=== PATIENT | male | born 1945 | race Caucasian/White ===

== ENCOUNTER 2018-01-28 09:34 | Emergency (ER) | payer BC, OTHER ==
[2018-01-28 11:20] LABS: Absolute Lymphocytes (CBC) 2.1 K/uL (0.7-4.9); Absolute Monocytes 0.6 K/uL (0.1-1.3); Absolute Neutrophil 7.3 K/uL (1.8-8.0); Basophils % 0.5 % (0-1.3); Eosinophils % 1.5 % (0-4.4); Hematocrit 43.9 % (39.6-49.0); Lymphocytes % 20.8 % (15.3-44.8); MCH 29.2 pg (27.0-35.0); MCV 85.6 fL (80-100); Monocytes % 5.8 % (3.3-12.3); RBC Red Blood Cell Count 5.12 M/uL (4.33-5.43)
[2018-01-28 11:31] LABS: Potassium 3.8 mEq/L (3.6-5.0)
--- NOTE | 2018-01-28 11:33 | RAD REPORT ---
EXAM DESCRIPTION: RAD - Foot Right 2 View - 01/28/2018 11:16 am CLINICAL HISTORY: Great toe injury. COMPARISON: None. FINDINGS: Soft tissue swelling is seen involving the great toe. Definitive evidence of fracture is n ot seen. Large calcaneal spur along the plantar aspect.
--- NOTE | 2018-01-28 11:54 | EDPHYS ---
Physician Documentation [facility] Name: Angel Palmer Age: 72 yrs Sex: Male : 1945 Arrival Date: 01/28/2018 Time: 09:38 Bed 14 Private MD: None, None ED Physician Vladimir Kirby HPI: 01/28 11:49 This 72 yrs old Male presents to ER via Wheelchair with complaints of Toe snw Injury. 11:49 Onset: The symptoms/episode began/occurred suddenly, and became persistent. The patient snw has not experienced similar symptoms in the past. The patient has not recently seen a physician, the patient's primary care provider is Dr. Chakraborty. Historical: - Allergies: 10:12 NKA; iw - Home Meds: 10:12 albuterol sulfate 90 mcg/actuation Inhl HFAA 1 puff every 4-6 hours [Active]; iw budesonide inhalation inhalation [Active]; citalopram 20 mg tab 1 tab once daily [Active]; hydrochlorothiazide 25 mg Oral tab 1 tab once daily [Active]; lisinopril 5 mg Oral tab 1 tab once daily [Active]; metformin 1,000 mg Oral tab 1 tab 2 times per day [Active]; simvastatin 40 mg Oral tab 1 tab once daily [Active]; - PMHx: 10:12 Diabetes - NIDDM; Hypertension; Hyperlipidemia; iw - PSHx: 10:12 None; iw - Immunization history:: Adult Immunizations up to date, Last tetanus immunization: up to date. - Social history:: Smoking status: Patient uses tobacco products, 1.5 ppd. - Ebola Screening: : Patient negative for fever greater than or equal to 101.5 degrees Fahrenheit, and additional compatible Ebola Virus Disease symptoms Patient denies exposure to infectious person Patient denies travel to an Ebola-affected area in the 21 days before illness onset No symptoms or risks identified at this time. ROS: 11:00 Constitutional: Negative for fever, chills, and weight loss, Eyes: Negative for injury, snw pain, redness, and discharge, ENT: Negative for injury, pain, and discharge, Neck: Negative for injury, pain, and swelling, Cardiovascular: Negative for chest pain, palpitations, and edema, Respiratory: Negative for shortness of breath, cough, wheezing, and pleuritic chest pain, Abdomen/GI: Negative for abdominal pain, nausea, vomiting, diarrhea, and constipation, Back: Negative for injury and pain, : Negative for injury, bleeding, discharge, and swelling, MS/Extremity: Negative for deformity, + redness to area surrounding toenail, toenail loose Skin: Negative for injury, rash, and discoloration, Neuro: Negative for headache, weakness, numbness, tingling, and seizure. Exam: 10:58 Constitutional: This is a well developed, well nourished patient who is awake, alert, snw and in no acute distress. Head/Face: Normocephalic, atraumatic. Eyes: Pupils equal round and reactive to light, extra-ocular motions intact. Lids and lashes normal. Conjunctiva and sclera are non-icteric and not injected. Right subconjunctival hemorrhage noted. Cornea within normal limits. Periorbital areas with no swelling, redness, or edema. ENT: Nares patent. No nasal discharge, no septal abnormalities noted. Tympanic membranes are normal and external auditory canals are clear. Oropharynx with no redness, swelling, or masses, exudates, or evidence of obstruction, uvula midline. Mucous membranes moist. Neck: Trachea midline, no thyromegaly or masses palpated, and no cervical lymphadenopathy. Supple, full range of motion without nuchal rigidity, or vertebral point tenderness. No Meningismus. Chest/axilla: Normal chest wall appearance and motion. Nontender with no deformity. No lesions are appreciated. Cardiovascular: Regular rate and rhythm with a normal S1 and S2. No gallops, murmurs, or rubs. Normal PMI, no JVD. No pulse deficits. Respiratory: Lungs have equal breath sounds bilaterally, clear to auscultation and percussion. No rales, rhonchi or wheezes noted. No increased work of breathing, no retractions or nasal flaring. Abdomen/GI: Soft, non-tender, with normal bowel sounds. No distension or tympany. No guarding or rebound. No evidence of tenderness throughout. Back: No spinal tenderness. No costovertebral tenderness. Full range of motion. Skin: Warm, dry with normal turgor. Normal color with no rashes, no lesions, and no evidence of cellulitis. Area to right great toe with peeling, mild erythema at toenail edge, loose nail Neuro: Awake and alert, GCS 15, oriented to person, place, time, and situation. Cranial nerves II-XII grossly intact. Motor strength 5/5 in all extremities. Sensory grossly intact. Cerebellar exam normal. Normal gait. Psych: Awake, alert, with orientation to person, place and time. Behavior, mood, and affect are within normal limits. 10:58 Skin: Appearance: normal except for affected area, injury, contusion(s), that are deep, of the right great toe. Vital Signs: 10:12 BP 167 / 87; Pulse 86; Resp 20 S; Temp 97.5; Pulse Ox 93% on R/A; Weight 107.05 kg; iw Height 5 ft. 8 in. (172.72 cm); Pain 7/10; 12:18 BP 158 / 75; Pulse 67; Resp 18; Pulse Ox 96% on R/A; mb3 10:12 Body Mass Index 35.88 (107.05 kg, 172.72 cm) iw MDM: 10:46 Patient medically screened. snw 11:59 Data reviewed: vital signs, nurses notes. Data interpreted: Pulse oximetry: on room air snw is 93 %. Interpretation: acceptable. Counseling: I had a detailed discussion with the patient and/or guardian regarding: the historical points, exam findings, and any diagnostic results supporting the discharge/admit diagnosis, the presence of at least one elevated blood pressure reading (>120/80) during this emergency department visit, radiology results, the need for outpatient follow up, to return to the emergency department if symptoms worsen or persist or if there are any questions or concerns that arise at home. Special discussion: I have referred the patient to see his PCP for further evaluation of high blood pressure. Based on the history and exam findings, there is no indication for further emergent testing or inpatient evaluation. I discussed with the patient/guardian the need to see the physician coding specialist for further evaluation of the symptoms. I discussed with the patient/guardian the need to see the primary care provider for further evaluation of the symptoms. 01/28 10:58 Order name: Sed Rate; Complete Time: 12:05 snw 01/28 10:58 Order name: CBC with Diff; Complete Time: 12:05 snw 01/28 10:58 Order name: Foot Right 2 View XRAY; Complete Time: 11:36 snw 01/28 10:58 Order name: Blood Culture Adult (2) snw 01/28 10:58 Order name: Chem 7; Complete Time: 11:36 snw Administered Medications: 12:01 Drug: LevaQUIN 500 mg Route: PO; mb3 12:17 Follow up: Response: No adverse reaction mb3 Disposition: 16:15 Co-signature as Attending Physician, Vladimir Kirby MD I agree with the assessment and kdr plan of care. Disposition: 01/28/18 11:53 Discharged to Home. Impression: Contusion of toe with damage to nail, Cellulitis of right toe. - Condition is Stable. - Discharge Instructions: Cellulitis, Paronychia. - Prescriptions for Levaquin 500 mg Oral Tablet - take 1 tablet by ORAL route once daily for 7 days; 7 tablet. Tylenol- Codeine #3 300-30 mg Oral Tablet - take 2 tablets by ORAL route every 6 hours As needed; 15 tablet. - Medication Reconciliation Form, Thank You Letter, Antibiotic Education, Prescription Opioid Use form. - Follow up: Juan Alberto Aceves DPM; When: 1 - 2 days; Reason: Recheck today's complaints, Continuance of care, Re-evaluation by your physician. Signatures: Dispatcher [employer] EDMS Vladimir Kirby MD MD [facility] Brenda Rubio, JAHAIRA-Cristian MINE EXPLORATION ENGINEER-Csnw Catarina Hooks RN RN Paxton Bedolla RN RN mb3 Corrections: (The following items were deleted from the chart) 11:03 10:58 Constitutional: This is a well developed, well nourished patient who is awake, snw alert, and in no acute distress. Head/Face: Normocephalic, atraumatic. Eyes: Pupils equal round and reactive to light, extra-ocular motions intact. Lids and lashes normal. Conjunctiva and sclera are non-icteric and not injected. Cornea within normal limits. Periorbital areas with no swelling, redness, or edema. ENT: Nares patent. No nasal discharge, no septal abnormalities noted. Tympanic membranes are normal and external auditory canals are clear. Oropharynx with no redness, swelling, or masses, exudates, or evidence of obstruction, uvula midline. Mucous membranes moist. Neck: Trachea midline, no thyromegaly or masses palpated, and no cervical lymphadenopathy. Supple, full range of motion without nuchal rigidity, or vertebral point tenderness. No Meningismus. Chest/axilla: Normal chest wall appearance and motion. Nontender with no deformity. No lesions are appreciated. Cardiovascular: Regular rate and rhythm with a normal S1 and S2. No gallops, murmurs, or rubs. Normal PMI, no JVD. No pulse deficits. Respiratory: Lungs have equal breath sounds bilaterally, clear to auscultation and percussion. No rales, rhonchi or wheezes noted. No increased work of breathing, no retractions or nasal flaring. Abdomen/GI: Soft, non-tender, with normal bowel sounds. No distension or tympany. No guarding or rebound. No evidence of tenderness throughout. Back: No spinal tenderness. No costovertebral tenderness. Full range of motion. Neuro: Awake and alert, GCS 15, oriented to person, place, time, and situation. Cranial nerves II-XII grossly intact. Motor strength 5/5 in all extremities. Sensory grossly intact. Cerebellar exam normal. Normal gait. Psych: Awake, alert, with orientation to person, place and time. Behavior, mood, and affect are within normal limits. snw 12:19 11:53 01/28/2018 11:53 Discharged to Home. Impression: Contusion of toe with damage to mb3 nail; Cellulitis of right toe. Condition is Stable. Forms are Medication Reconciliation Form, Thank You Letter, Antibiotic Education, Prescription Opioid Use. Follow up: Juan Alberto Aceves; When: 1 - 2 days; Reason: Recheck today's complaints, Continuance of care, Re-evaluation by your physician. snw
--- NOTE | 2018-01-28 11:54 | ER ---
Nurse's Notes [facility] Name: Angel Palmer Age: 72 yrs Sex: Male : 1945 Arrival Date: 01/28/2018 Time: 09:38 Bed 14 Private MD: None, None Diagnosis: Contusion of toe with damage to nail;Cellulitis of right toe Presentation: 01/28 10:08 Presenting complaint: Patient states: a horse stall door fell on right great toe 10 iw days ago, is having pain, swelling, and toe nail looks like it may fall off. Transition of care: patient was not received from another setting of care. Onset of symptoms was January 18, 2018. Risk Assessment: Do you want to hurt yourself or someone else? Patient reports no desire to harm self or others. Initial Sepsis Screen: Does the patient meet any 2 criteria? No. Patient's initial sepsis screen is negative. Does the patient have a suspected source of infection? No. Patient's initial sepsis screen is negative. Care prior to arrival: None. 10:08 Method Of Arrival: Wheelchair iw 10:08 Acuity: DEBRA 4 iw Historical: - Allergies: 10:12 NKA; iw - Home Meds: 10:12 albuterol sulfate 90 mcg/actuation Inhl HFAA 1 puff every 4-6 hours [Active]; iw budesonide inhalation inhalation [Active]; citalopram 20 mg tab 1 tab once daily [Active]; hydrochlorothiazide 25 mg Oral tab 1 tab once daily [Active]; lisinopril 5 mg Oral tab 1 tab once daily [Active]; metformin 1,000 mg Oral tab 1 tab 2 times per day [Active]; simvastatin 40 mg Oral tab 1 tab once daily [Active]; - PMHx: 10:12 Diabetes - NIDDM; Hypertension; Hyperlipidemia; iw - PSHx: 10:12 None; iw - Immunization history:: Adult Immunizations up to date, Last tetanus immunization: up to date. - Social history:: Smoking status: Patient uses tobacco products, 1.5 ppd. - Ebola Screening: : Patient negative for fever greater than or equal to 101.5 degrees Fahrenheit, and additional compatible Ebola Virus Disease symptoms Patient denies exposure to infectious person Patient denies travel to an Ebola-affected area in the 21 days before illness onset No symptoms or risks identified at this time. Screenin:35 Abuse screen: Denies threats or abuse. Nutritional screening: No deficits noted. mb3 Tuberculosis screening: No symptoms or risk factors identified. Fall Risk None identified. Assessment: 10:31 General: Appears uncomfortable, well groomed, Behavior is calm, cooperative, mb3 appropriate for age. Pain: Complains of pain in Left first toenail. Neuro: No deficits noted. Cardiovascular: No deficits noted. Heart tones S1 S2 present. Respiratory: No deficits noted. Airway is patent Respiratory effort is even, unlabored, Respiratory pattern is regular, symmetrical. GI: No signs and/or symptoms were reported involving the gastrointestinal system. : No signs and/or symptoms were reported regarding the genitourinary system. EENT: Reports burst blood vessel in left eye. Musculoskeletal: Reports pain in Left first toenail. Vital Signs: 10:12 BP 167 / 87; Pulse 86; Resp 20 S; Temp 97.5; Pulse Ox 93% on R/A; Weight 107.05 kg; iw Height 5 ft. 8 in. (172.72 cm); Pain 7/10; 12:18 BP 158 / 75; Pulse 67; Resp 18; Pulse Ox 96% on R/A; mb3 10:12 Body Mass Index 35.88 (107.05 kg, 172.72 cm) iw ED Course: 09:38 Patient arrived in ED. mr 09:38 None, None is Private Physician. mr 10:06 Brenda Rubio [facility]C [facility] snw 10:06 Vladimir Kirby MD is Attending Physician. snw 10:10 Triage completed. iw 10:12 Arm band placed on. iw 10:30 Paxton Bedolla, ROSINA is Primary Nurse. mb3 11:13 Inserted saline lock: 20 gauge in right forearm, using aseptic technique. Blood mb3 collected. 11:15 X-ray completed. Portable x-ray completed in exam room. Patient tolerated procedure la2 well. 11:16 Foot Right 2 View XRAY In Process Unspecified. EDMS 11:52 Juan Alberto Aceves DPM is Referral Physician. snw 12:18 Patient has correct armband on for positive identification. mb3 12:18 No provider procedures requiring assistance completed. IV discontinued, intact, mb3 bleeding controlled, No redness/swelling at site. Pressure dressing applied. Administered Medications: 12:01 Drug: LevaQUIN 500 mg Route: PO; mb3 12:17 Follow up: Response: No adverse reaction mb3 Outcome: 11:53 Discharge ordered by . marsha 12:18 Discharged to home ambulatory. mb3 12:18 Condition: stable 12:18 Discharge instructions given to patient, Instructed on discharge instructions, follow up and referral plans. medication usage, Demonstrated understanding of instructions, follow-up care, medications, Prescriptions given X 2. 12:19 Patient left the ED. mb3 Signatures: Dispatcher [employer] EDMS Brenda Rubio, FILE CLERK-C FILE CLERK-Csnw Anay Banks Irene, RN Angelica Cooney Mark, RN RN mb3
[2018-01-28] MEDS ORDERED: levoFLOXacin 500 MG TAB ONE (12:02)
== END 2018-01-28 12:19 | disposition home or self-care (01) ==
LOC: ER 09:34
DX: L03.031 Cellulitis of right toe (principal); I10 Essential (primary) hypertension; E11.9 Type 2 diabetes mellitus without complications; E78.5 Hyperlipidemia, unspecified; Z72.0 Tobacco use
CPT/HCPCS: 36415; 80048; 85025; 85652; 87040; 99284